=== PATIENT | male | born 1945 | race Caucasian/White ===

== ENCOUNTER 2022-01-11 09:00 | Outpatient (RCR) | payer MEDICARE, SELFPAY ==
--- NOTE | 2021-12-15 09:50 | PTOPEVAL ---
Thank you for referring Jef Montana to [facility].? The patient is scheduled to be seen for therapy? 2 x/week for 5 weeks. Please review, sign, date and return this plan of care ERICA. I agree with and certify that the following plan of care is medically necessary. Referring Physician Date Attending Provider: Griffin Angel, , PA Diagnosis acute low back pain Onset early Oct Subjective Information He bent over to tie his shoes Query Text:As Reported By Patient/ when he had increased back Family pain. He threw his back out years ago. He received injections to improve his symptoms. Reports mild limitations with walking, standing and sitting. He is limiting with lifting due to aneurysm. He does not perform walking or exercise program. 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 Pain Assessment Lower Back Reported Pain Level 0 Pain Description Sharp,Stabbing Pain Frequency Acute Lowest Pain Intensity 0 Greatest Pain Intensity 8 Pain Aggravating Factors ADL's,Sitting,Walking,Weight Bearing/Standing\ Cervical and Lumbar ROM Lumbar ROM Lumbar Flexion Active Ankle:Hands to: Lateral Flexion distal thighActive Hands to: Lumbar Comments 25% trunk ext no pain with trunk motions Cervical and Lumbar Muscle Testing Lumbar Strength Lower Abdominal Strength 3 Fair Abdominal Obliques 3 Fair Upper Back Extension 3 Fair Lower Back Extension 3 Fair Lower Extremity Muscle Strength Testing Hip Strength Bilateral Hip Flexion Strength 4+ Good + Hip Extension Strength 3 Fair Hip Abduction Strength 3 Fair Knee Strength Bilateral Knee Flexion Strength 4- Good - Knee Extension Strength 5 Normal Muscle Length Testing Muscle Length Testing Piriformis w/Hip Neutral (R) Severe Tightness,(L) Severe Tightness Right Straight Leg Raise Muscle Length ( 80 degrees) Left Straight Leg Raise Muscle Length ( 70 degrees) Left Hamstring Length -45:(90 - 90 Position) Right Hamstring Length -45:(90 - 90 Position) Posture Posture Standing Position Head/C-Spine Posture Forward Head Thoracic Spine Posture Flexible Scoliosis on (R),
--- NOTE | 2022-01-04 09:25 | PCPTNOTE ---
Patient did not show up for scheduled appointment this date. Called and left message regarding his next visit.
--- NOTE | 2022-01-11 09:44 | PTOPEVAL ---
Discharge Summary Thank you for referring Jef Montana to [facility].?Jef has attended 8 therapy visits to address his back pain. As a result of skilled therapy services, he demonstrates improved pain, improved trunk motion, improved strength, and improved ability to perform daily task. He has achieved his therapy goals at this time. Will DC skilled therapy services at this time. Please review, sign, date and return this discharge summary ERICA. I agree with and certify that the following plan of care is medically necessary. Referring Physician Date Attending Provider: Griffin AngelJr., PA Diagnosis acute low back pain Onset early Oct Additional Evaluation Detail He bent over to tie his shoes when he had increased back pain. He threw his back out years ago. Subjective Information He is not performing his Query Text:As Reported By Patient/ exercises daily, but is Family performing a few time a week. He has not started his walking program. Reports improved francine with standing, sleeping, lifting, normal daily walking. He is more aware of his posture with standing and walking. Pain Assessment Lower Back Reported Pain Level 0 Lowest Pain Intensity 0 Greatest Pain Intensity 1 Cervical and Lumbar ROM Lumbar Flexion Active Floor Lateral Flexion lateral knee joint line Lumbar Comments 50% trunk ext no pain with trunk motions Lower Extremity Muscle Strength Testing Bilateral Hip Flexion Strength 5 Normal Hip Extension Strength 4- Good - Hip Abduction Strength 3+ Fair + Knee Strength Bilateral Knee Flexion Strength 4+ Good + Knee Extension Strength 5 Normal Muscle Length Testing Two-Joint Hip Flexor Shortened Muscles Short (R) Iliopsoas,Short (L) Iliopsoas,Short (R) Rectus Femoris,Short (L) Rectus Femoris,Short (R) Ilial Tib Band,Short (L) Ilial Tib Band Piriformis w/Hip Neutral (R) Severe Tightness,(L) Severe Tightness Right Straight Leg Raise Muscle Length ( 80 degrees) Left Straight Leg Raise Muscle Length ( 80 degrees) Left Hamstring Length -45(90 - 90 Position) Right Hamstring Length -40:(90 - 90 Position) Palpation Assessment: no tenderness godfrey QL and lumbar paraspinals region Special Tests-Lower Extremity Hip Special Tests Tren
== END 2022-01-11 14:28 | disposition home or self-care (01) ==
LOC: ANHPT 09:00
PROVIDERS: PCP Physician Assistant; Visit Provider Physician Assistant
DX: M54.50 Low back pain, unspecified (principal)
CPT/HCPCS: 97014; 97110; 97112; 97140; 97161; G0283

== ENCOUNTER 2023-10-13 09:27 | Emergency (ER) | payer MEDICARE, SELFPAY ==
[2023-10-13 09:43] VITALS: BP 139/85; PULSE 73; RESP 16; TEMP 36.6; O2SAT 98
--- NOTE | 2023-10-13 10:09 | ED.URI ---
HPI - URI/Sore Throat General Chief Complaint: Upper Respiratory Infection Stated Complaint: sinus/cough Time Seen by Provider: 10/13/23 10:09 History of Present Illness HPI Narrative: 78-year-old male presented for complaint of sinus congestion, postnasal drainage, and sore throat for about 3 days. He has taken [id number] medication without relief. He took a negative COVID test at home. Denies shortness of breath, wheezing, nausea vomiting, diarrhea, lethargy, fevers or chills. Related Data Home Medications Medication Instructions Recorded Confirmed glipizide 10 mg tablet, extended 10 mg PO BID 10/13/23 10/13/23 release 24 hr lisinopril 40 mg tablet 40 mg PO DAILY 10/13/23 10/13/23 metformin 500 mg tablet,extended 500 mg PO BID 10/13/23 10/13/23 release 24 hr metoprolol tartrate 50 mg tablet 50 mg PO BID 10/13/23 10/13/23 Allergies Allergy/AdvReac Type Severity Reaction Status Date / Time No Known Allergies Allergy Verified 10/13/23 09:47 Review of Systems Review of Systems: CONSTITUTIONAL: Denies body aches, fever, chills, or sweats. EYES: Denies visual changes, redness, or discharge. ENT: per hpi CARDIOVASCULAR: Denies chest pain, palpitations, or edema. RESPIRATORY: Denies dyspnea. GASTROINTESTINAL: Denies abdominal pain, nausea, vomiting, or diarrhea. SKIN: Denies rash, itching, or wounds. MUSCULOSKELETAL: Denies back pain, joint pain, or myalgia. NEUROLOGIC: Denies headache PMFSH Past Medical History Medical History (Updated 10/13/23 @ 10:18 by Chey Burks, HOANG) Diabetes Hypertension Exam Narrative: GENERAL: mildly Ill-appearing, no acute distress. EYES: conjunctivae clear ENT: Mucous membranes moist. TM pearly healy with normal light reflex bilaterally; no tragal tenderness. Oropharynx erythematous without lesions. Tonsils enlarged and without exudate. No drooling, no hoarseness, no trismus, uvula midline. No tripod positioning, hot potato voice, or soft palate swelling. NECK: Supple. No lymphadenopathy CHEST: Clear to auscultation, breath sounds equal. No respiratory distress, speaks in full sentences. HEART: Regular rate and rhythm. Murmur noted, pt aware SKIN: Warm, dry, no rash. NEURO: Alert and oriented x3. Course Course Emergency Course: Patient is aware of diagnosis, understands and agrees to treatment plan. Anticipatory guidance given. Patient agrees to follow-up as directed and is aware of reasons to seek care at the emergency department. Portions of this record may have been created with voice recognition software Level of Care: Express Care Visit Vital Signs Vital signs: Vital Signs Temperature 97.8 F 10/13/23 09:43 Pulse Rate 73 10/13/23 09:43 Respiratory Rate 16 10/13/23 09:43 Blood Pressure 139/85 10/13/23 09:43 Pulse Oximetry 98 10/13/23 09:43 Oxygen Delivery Room Air 10/13/23 09:43 Temperature 97.8 F 10/13/23 09:43 Pulse Rate 73 10/13/23 09:43 Respiratory Rate 16 10/13/23 09:43 Blood Pressure 139/85 10/13/23 09:43 Pulse Oximetry 98 10/13/23 09:43 Oxygen Delivery Room Air 10/13/23 09:43 MDM - URI/Sore Throat MDM Narrative Medical decision making narrative: Discussed physical exam findings, most likely viral. He states he needs something to kick it. discussed inappropriate use of antibiotics which will not cover viral illnesses. Verbalizes understanding. He will try [id number] medications and if no improvement he can start the antibiotic. Advise supportive treatments. Patient is appropriate for outpatient treatment and follow-up. Differential Diagnosis Differential diagnosis: Likely upper respiratory infection, sinusitis, viral infection and pharyngitis Discharge Plan Discharge Clinical Impression: Upper respiratory infection Patient Disposition: Home, Self-Care Condition: Stable Instructions: Antibiotic Form, Upper Respiratory Infection (ED) Additio
== END 2023-10-13 10:20 | disposition home or self-care (01) ==
PROVIDERS: Emergency Provider Nurse Practitioner Family; PCP Physician Assistant
DX: J06.9 Acute upper respiratory infection, unspecified (principal); E11.9 Type 2 diabetes mellitus without complications; I10 Essential (primary) hypertension
CPT/HCPCS: 99213; G0463

== ENCOUNTER 2024-01-05 10:09 | Emergency (ER) | payer MEDICARE, SELFPAY ==
[2024-01-05 10:22] VITALS: BP 119/74; PULSE 71; RESP 16; TEMP 37.2; O2SAT 99
== END 2024-01-05 11:52 | disposition home or self-care (01) ==
PROVIDERS: Emergency Provider Nurse Practitioner; PCP Physician Assistant
DX: J06.9 Acute upper respiratory infection, unspecified (principal); B34.9 Viral infection, unspecified; I10 Essential (primary) hypertension
CPT/HCPCS: 87081; 99212; G0463